=== PATIENT | male | born 2000 | race Two or more races ===

== ENCOUNTER 2022-10-18 13:37 | Emergency (ER) | payer OTHER ==
[~2022-10-18] VITALS: Ht 157.5 cm; Wt 80.0 kg
[2022-10-18 14:05] VITALS: BP 125/72
[2022-10-18] MEDS ORDERED: IBUPROFEN 600 MG TAB PO STA (15:55)
[2022-10-18] MEDS ORDERED: IBUP600T28 PO (16:36)
[2022-10-18] MEDS ORDERED: CYCL-839 PO (16:37)
== END 2022-10-18 16:52 | disposition home or self-care (01) ==
LOC: ER 13:37
DX: S16.1XXA Strain of muscle, fascia and tendon at neck level, initial encounter (principal); S20.212A Contusion of left front wall of thorax, initial encounter; R51.9 Headache, unspecified; V89.2XXA Person injured in unspecified motor-vehicle accident, traffic, initial encounter; Y93.89 Activity, other specified; Y92.89 Other specified places as the place of occurrence of the external cause; Y99.8 Other external cause status
CPT/HCPCS: 71101; 72040